=== PATIENT | male | born 1940 | race Caucasian/White ===

== ENCOUNTER → 2021-08-04 | Outpatient (CLI) | payer MEDICARE, OTHER ==
--- NOTE | 2021-08-04 09:30 | REP ---
INDICATION: BILAT KNEE PAIN. COMPARISON: None. 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 No abnormal periprosthetic lucencies are identified. The alignment is near anatomical. There is left knee medial compartmental narrowing and slight tricompartmental marginal osteophytosis. There is mild asymmetric left knee patellofemoral joint space narrowing. No acute fracture, dislocation, or subluxation is seen on either side. IMPRESSION: Chronic changes as described above. <Electronically signed by Ammon Bustamante > 08/04/21 [id number]
== END ==
LOC: M SOG 08:13
PROVIDERS: ATTEND Orthopaedic Surgery Adult Reconstructive Orthopaedic Surgery
DX: M25.762 Osteophyte, left knee (principal); M25.561 Pain in right knee; M25.562 Pain in left knee; Z96.651 Presence of right artificial knee joint

== ENCOUNTER → 2021-09-14 | Outpatient (CLI) | payer MEDICARE, OTHER ==
--- NOTE | 2021-09-15 16:11 | REP ---
INDICATION: MARK KNEE PAIN. COMPARISON: Radiographs 08/04/2021. TECHNIQUE: Axial CT bilateral knees performed with sagittal and coronal reconstruction images. FINDINGS: There is a metallic right knee prosthesis. This causes adjacent streak artifact, limiting evaluation of adjacent osseous structures. There is no evidence of acute fracture or dislocation bilaterally. There is no definite abnormal lucency at the interface between the prosthesis and [place] bone. There appears to be cement material along the stem of the tibial portion of the prosthesis. There is no abnormal lucency in the region of the cement. There is moderate medial left knee joint space narrowing with mild subchondral sclerosis and spurring. There is mild narrowing of the lateral aspect of the left patellofemoral joint. There is a small left joint effusion. Scattered vascular calcifications are seen in the soft tissues. IMPRESSION: Metallic right hip prosthesis with no radiographic evidence of loosening. No acute fracture or dislocation. Moderate degenerative changes left knee joint with small joint effusion. <Electronically signed by Nickolas Bauman > 09/15/21 [id number]
== END ==
LOC: M RAD 11:53
PROVIDERS: ATTEND Pain Medicine Interventional Pain Medicine
DX: M25.561 Pain in right knee (principal); M25.562 Pain in left knee; Z96.641 Presence of right artificial hip joint; Z96.651 Presence of right artificial knee joint

== ENCOUNTER → 2021-11-01 | Outpatient (REF) | payer MEDICARE, OTHER ==
[2021-11-01 12:40] LABS: HEMATOCRIT 48.7 % (42.0-52.0); HEMOGLOBIN 15.6 g/dl (13.5-17.5); MEAN CORPUSCULAR HEMOGLOBIN 30.2 pg (27.0-33.0); MEAN CORPUSCULAR VOLUME 94.4 fl (80.0-96.0); PLATELET COUNT, AUTOMATED 204 10^3/uL (150-450); RED BLOOD COUNT 5.16 10^6/uL (4.30-6.10); WHITE BLOOD COUNT 5.9 10^3/uL (4.0-10.0)
[2021-11-01 13:06] LABS: BLOOD UREA NITROGEN 21 MG/DL (7-18); CALCIUM LEVEL 9.7 MG/DL (8.8-10.2); CARBON DIOXIDE LEVEL 27 MEQ/L (21-32); CHLORIDE LEVEL 110 MEQ/L (98-107); CHOLESTEROL LEVEL 136 MG/DL (<200); CHOLESTEROL RISK RATIO 2.566 (<5); CREATININE FOR GFR 0.99 MG/DL (0.70-1.30); GLOMERULAR FILTRATION RATE > 60.0 (>35); GLUCOSE, FASTING 103 MG/DL (70-100); HDL CHOLESTEROL 53 MG/DL (>40); LDL CHOLESTEROL 70 MG/DL (<100); NON-HDL-C 83 MG/DL; POTASSIUM SERUM 4.2 MEQ/L (3.5-5.1); SODIUM LEVEL 142 MEQ/L (136-145); TRIGLYCERIDES LEVEL 67 MG/DL (<150)
== END ==
LOC: M LABDRWAD 12:18
PROVIDERS: ATTEND Internal Medicine Cardiovascular Disease
DX: E78.5 Hyperlipidemia, unspecified (principal); I48.0 Paroxysmal atrial fibrillation; I25.10 Atherosclerotic heart disease of native coronary artery without angina pectoris